=== PATIENT | female | born 1965 | race Hispanic/Latino ===

== ENCOUNTER 2017-10-02 15:18 | Observation (INO) | payer OTHER ==
[~2017-10-02] VITALS: Ht 157.5 cm; Wt 64.9 kg
--- NOTE | 2017-10-02 16:30 | ED GI/GU/ABDOMINAL COMPLAINT ---
History of Present Illness General Chief Complaint: Abdominal Pain/Flank Pain Stated Complaint: RT SIDED ABD PAIN Source: patient Exam Limitations: no limitations Vital Signs & Intake/Output Vital Signs & Intake/Output Vital Signs Date Time Temp Pulse Resp B/P B/P Pulse O2 O2 Flow FiO2 Mean Ox Delivery Rate 10/02 1751 96.1 62 20 119/73 95 Room Air 10/02 1525 96.1 69 16 145/91 96 Room Air Allergies Coded Allergies: Penicillins (facial edema 10/02/17) Reconcile Medications Levothyroxine Sodium (Synthroid) 50 MCG TABLET 50 MCG PO DAILY THYROID HEALTH (Reported) Metformin HCl (Glucophage XR) 500 MG TAB.ER.24H 1,000 MG PO BID DIABETES ( Reported) Oxycodone HCl/Acetaminophen (Percocet 5-325 MG Tablet) 5 MG-325 MG TABLET 1-2 TAB PO Q4 HRS NEEDED PRN ABDOMINAL PAIN Triage Note: PT COMPLAINS OF RLQ PAIN THAT STARTED SUNDAY WITH N/V LBM TODAY AND NORMAL , STATES THAT PAIN IS LESS TODAY THAN SUNDAY. PT WENT TO [facility] WHO DID US AND SENT PT TO ER FOR EVAL Triage Nurses Notes Reviewed? yes ? N Is pt currently ? No Onset: Abrupt Duration: day(s):, better, constant, continues in ED Quality/Severity: moderate, severe, throbbing Location: right lower quadrant Radiation: back (RIGHT) Activities at Onset: sleep HPI: Patient presents for evaluation of right lower quadrant abdominal pain that a worker from sleep on . She states that [facility] and was instructed to go to the emergency department for evaluation for possible appendicitis after a normal transvaginal ultrasound. She denies any associated fever or cold symptoms or dysuria. She states that she began feeling nauseous yesterday. Past surgical history is pertinent for liposuction and a possible cholecystitis. Past History Travel History Traveled to [place] past 21 day No Medical History Any Pertinent Medical History? see below for history Neurological: NONE EENT: NONE Cardiovascular: NONE Respiratory: NONE Gastrointestinal: NONE Hepatic: NONE Renal: NONE Musculoskeletal: NONE Psychiatric: NONE Endocrine: diabetes Blood Disorders: NONE Cancer(s): NONE RN ORTHOPEDIC/Reproductive: NONE Surgical History Surgical History: SEE hpi Psychosocial History What is your primary language Icelandic Tobacco Use: Never used ETOH Use: denies use Illicit Drug Use: denies illicit drug use Family History Hx Contributory? No Review of Systems Review of Systems Constitutional: Reports: no symptoms. EENTM: Reports: no symptoms. Respiratory: Reports: no symptoms. Cardiovascular: Reports: no symptoms. GI: Reports: see HPI. Genitourinary: Reports: no symptoms. Musculoskeletal: Reports: no symptoms. Skin: Reports: no symptoms. Neurological/Psychological: Reports: no symptoms. Hematologic/Endocrine: Reports: no symptoms. Immunologic/Allergic: Reports: no symptoms. All Other Systems: Reviewed and Negative Physical Exam Physical Exam Gastrointestinal: SEE BELOW Comments: Gen.: Well-nourished, well-developed, no acute respiratory distress. Head: Normocephalic, atraumatic. Eyes: Normal inspection bilaterally Ears: Normal inspection bilaterally Nose: Normal inspection Throat/mouth : Moist mucosa Neck: Supple, full range of motion, no goiter Heart: Regular rate and rhythm, no murmurs rubs or gallops Lungs: Clear to auscultation bilaterally with normal air entry Chest: Nontender Back: Normal range of motion Abdomen: Right lower quadrant/McBurney's point tenderness with brief voluntary guarding but no rebound, patient is tender to percussion over the same area, no Rovsing sign. Abdomen is soft with normal bowel sounds. Extremities: Normal range of motion grossly, equal radial pulses, no cyanosis clubbing or edema Neurologic: Cranial nerves grossly intact, speech is clear Skin: warm and dry Psychiatric: Calm, cooperative, no apparent delusions or hallucinations Core Measures ACS in differential dx? No Sepsis Present: No Sepsis Focused Exam Completed? No Progress Differential Diagnosis: appendicitis, biliary colic, kidney stone Plan of Care: Orders Procedure Date/time Status Add-on Test (ER Only) 10/02 1651 Active URINE 10/02 1622 Complete URINALYSIS 10/02 1622 Complete COMPREHENSIVE METABOLIC PANEL 10/02 1622 Complete CBC WITHOUT DIFFERENTIAL 10/02 1622 Complete AMYLASE 10/02 1622 Complete Current Medications Sig/Arlet Start time Last Medication Dose Stop Time Status Admin Ciprofloxacin 400 MG ONCE ONE 10/02 1930 AC (Ciprofloxacin) 10/02 2029 Dextrose/Water 200 ML (D5W) Metronidazole 500 MG ONCE ONE 10/02 1930 AC (Flagyl) 10/02 2029 N/A 1 UNIT (No Carrier) Laboratory Tests 10/02/17 1650: Anion Gap 11, Estimated GFR > 60, BUN/Creatinine Ratio 21.3, Glucose 98, Calcium 10.4 H, Total Bilirubin 0.4, AST 27, ALT 31, Alkaline Phosphatase 57, Total Protein 7.2, Albumin 4.0, Globulin 3.2, Albumin/Globulin Ratio 1.3, Amylase 32, CBC w Diff NO MAN DIFF REQ, RBC 5.03, MCV 81.1, MCH 25.8 L, RDW 14.5, MPV 9.1, Gran % 48.2, Lymphocytes % 44.4, Monocytes % 5.1, Eosinophils % 1.9, Basophils % 0.4, Absolute Granulocytes 3.6, Absolute Lymphocytes 3.3, Absolute Monocytes 0.4 , Absolute Eosinophils 0.1, Absolute Basophils 0, PUBS MCHC 31.9 L 10/02/17 1640: Urine Color YEL, Urine Clarity CLEAR, Urine pH 6.0, Ur Specific [place] 1.015, Urine Protein NEG, Urine Ketones NEG, Urine Nitrite NEG, Urine Bilirubin NEG, Urine Urobilinogen 0.2, Ur Leukocyte Esterase NEG, Ur Microscopic EXAM NOT REQUIRED, Urine Hemoglobin NEG, Urine Glucose NEG, Urine Test NEGATIVE Diagnostic Imaging: Discussed w/RAD: CT Scan. Radiology Impression: PATIENT: FLETCHER URIBE PRESENT AGE: 51 PATIENT ACCOUNT NO: [id number] : 67 LOCATION: [facility] ORDERING PHYSICIAN: Darian Emmanuel MD SERVICE DATE: 10/02/17 EXAM TYPE : CAT - CT ABD & PELVIS W IV CONTRAST EXAMINATION: CT ABDOMEN AND PELVIS WITH CONTRAST CLINICAL INFORMATION: Right lower quadrant abdominal pain and tenderness. COMPARISON: None TECHNIQUE: Multidetector volumetric imaging was performed of the abdomen and pelvis following IV administration of 95 mL of Optiray 320 intravenous contrast. Sagittal and coronal reformatted images were obtained on the technologist's workstation. DLP: 277.52 mGy-cm FINDINGS: LUNG BASES: The visualized lung bases are unremarkable. LIVER, GALLBLADDER, AND BILIARY TREE: The liver is normal in size, shape, and attenuation. No focal hepatic lesion or biliary ductal dilatation is present. Status post cholecystectomy with chronic dilatation of the CBD. No calcified stone in the bile ducts. PANCREAS: Unremarkable. SPLEEN: Unremarkable. Small splenule at the anterior splenic margin. ADRENAL GLANDS: Unremarkable. KIDNEYS AND URETERS: The kidneys are normal in size, shape, and attenuation. No hydronephrosis, hydroureter, or calculi seen. No perinephric stranding. BLADDER: Unremarkable. GASTROINTESTINAL TRACT: The appendix is abnormal. It is dilated and edematous consistent with an appendicitis. Mild edema in the mesenteric fat in right lower quadrant. No free fluid or abscess. The large and small bowel loops are normal. Moderate amount of stool throughout colon. ABDOMINAL WALL: No significant hernia is appreciated. LYMPH NODES: Normal. VASCULAR: Unremarkable. PELVIC VISCERA: Uterus is anteverted. No adnexal abnormality. OSSEOUS STRUCTURES: Unremarkable. IMPRESSION: Appendicitis. DICTATED BY: Richard Spring MD DATE/TIME DICTATED:1823 COURT OF APPEALS JUDGE:CLARIBEL DATE/TIME TRANSCRIBED:10/02/171823 CONFIDENTIAL, DO NOT COPY WITHOUT APPROPRIATE AUTHORIZATION. <Electronically signed in Other Vendor System> SIGNED BY: Richard Spring MD 10/02/17 1831 Initial ED EKG: none Comments: 10/02/2017 7:41:29 PM I have updated fletcher on her test results, I have ordered antibiotics and I am paging the surgical service. 10/02/2017 7:46:19 PM I discussed the patient's case with Dr. Melgar. Surgical PA paged. Departure Departure Disposition: STILL A PATIENT Condition: Stable Clinical Impression Primary Impression: Appendicitis, acute Qualifiers: Acute appendicitis type: with localized peritonitis Qualified Code: K35.3 - Acute appendicitis with localized peritonitis Referrals: Patient Has No Primary Care Dr (PCP/Family) Departure Forms: Customer Survey General Discharge Information Prescriptions: Current Visit Scripts Oxycodone HCl/Acetaminophen (Percocet 5-325 MG Tablet) 1-2 TAB PO Q4 HRS NEEDED PRN ABDOMINAL PAIN #20 TAB OR/GI Note Spoke With: Ramón AVILA,Abrahan Marquis ED Treatment Decision: FLETCHER URIBE requires urgent operative management of acute appendicitis that cannot be performed in the Emergency Room setting. Transport To: [facility] Critical Care Note Critical Care Note Critical Care Time: 30-74 min
[2017-10-02 17:14] LABS: ABSOLUTE BASOPHIL COUNT 0 /CUMM (0.0-0.2); ABSOLUTE EOSINOPHIL COUNT 0.1 /CUMM (0.0-0.7); ABSOLUTE GRANULOCYTE CT 3.6 /CUMM (1.4-6.5); ABSOLUTE LYMPH COUNT 3.3 /CUMM (1.2-3.4); ABSOLUTE MONOCYTE COUNT 0.4 /CUMM (0.10-0.60); BASOPHIL % 0.4 % (0.0-2.0); EOSINOPHIL % 1.9 % (0-5); GRANULOCYTE % 48.2 % (42.2-75.2); HEMATOCRIT 40.8 % (37-47); MEAN CORPUSCULAR HGB 25.8 PG (27.0-31.0); MEAN CORPUSCULAR HGB CONC 31.9 G/DL (33.0-37.0); MEAN CORPUSCULAR VOLUME 81.1 FL (81.0-99.0); MEAN PLATELET VOLUME 9.1 FL (7.4-10.4); PLATELET COUNT 281 /CUMM (130-400); RBC DISTRIBUTION WIDTH 14.5 % (11.5-14.5); RED BLOOD CELL CT 5.03 /CUMM (4.20-5.40); WHITE BLOOD CELL COUNT 7.5 /CUMM (4.8-10.8)
--- NOTE | 2017-10-02 18:31 | CT SCAN REPORT ---
EXAMINATION: CT ABDOMEN AND PELVIS WITH CONTRAST CLINICAL INFORMATION: Right lower quadrant abdominal pain and tenderness. COMPARISON: None TECHNIQUE: Multidetector volumetric imaging was performed of the abdomen and pelvis following IV administration of 95 mL of Optiray 320 intravenous contrast. Sagittal and coronal reformatted images were obtained on the technologist's workstation. DLP: 277.52 mGy-cm FINDINGS: LUNG BASES: The visualized lung bases are unremarkable. LIVER, GALLBLADDER, AND BILIARY TREE: The liver is normal in size, shape, and attenuation. No focal hepatic lesion or biliary ductal dilatation is present. Status post cholecystectomy with chronic dilatation of the CBD. No calcified stone in the bile ducts. PANCREAS: Unremarkable. SPLEEN: Unremarkable. Small splenule at the anterior splenic margin. ADRENAL GLANDS: Unremarkable. KIDNEYS AND URETERS: The kidneys are normal in size, shape, and attenuation. No hydronephrosis, hydroureter, or calculi seen. No perinephric stranding. BLADDER: Unremarkable. GASTROINTESTINAL TRACT: The appendix is abnormal. It is dilated and edematous consistent with an appendicitis. Mild edema in the mesenteric fat in right lower quadrant. No free fluid or abscess. The large and small bowel loops are normal. Moderate amount of stool throughout colon. ABDOMINAL WALL: No significant hernia is appreciated. LYMPH NODES: Normal. VASCULAR: Unremarkable. PELVIC VISCERA: Uterus is anteverted. No adnexal abnormality. OSSEOUS STRUCTURES: Unremarkable. IMPRESSION: Appendicitis.
[2017-10-02] MEDS ORDERED: GLUCOPHAGE XR500 M1 PO (18:59)
[2017-10-02] MEDS ORDERED: SYNTHROID50 MCG PO (19:00)
--- NOTE | 2017-10-02 20:34 | History & Physical Pre-Op ---
Chan Fierro 10/02/172027: General Information and HPI MD Statement: I have seen and personally examined JOSÉ MIGUEL URIBE and documented this H&P. The patient is a 51 year old F who presented with a patient stated chief complaint of [abdominal pain]. Source of Information: patient Exam Limitations: no limitations History of Present Illness: 51-year-old female with 4 days of right lower quadrant abdominal pain, anorexia, nausea. No history of same. Pain is severe, nonradiating, progressive. 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 While in the emergency department she had a CT scan of her abdomen and pelvis which shows acute appendicitis. Surgery was consulted for further management. She denies any vomiting. She last ate a little bit of an egg sandwich earlier today , she has no appetite. She was able to eat and drink sparingly throughout the last few days Allergies/Medications Allergies: Coded Allergies: Penicillins (facial edema 10/02/17) Home Med list Levothyroxine Sodium (Synthroid) 50 MCG TABLET 50 MCG PO DAILY THYROID HEALTH (Reported) Metformin HCl (Glucophage XR) 500 MG TAB.ER.24H 1,000 MG PO BID DIABETES ( Reported) Past History Medical History Neurological: NONE EENT: NONE Cardiovascular: NONE Respiratory: NONE Gastrointestinal: NONE Hepatic: NONE Renal: nephrolithiasis Musculoskeletal: NONE Psychiatric: NONE Endocrine: diabetes Blood Disorders: NONE Cancer(s): NONE 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 Review of Systems Review of Systems Constitutional: Reports: no symptoms, chills, malaise. Denies: fever. EENTM: Reports: no symptoms. Cardiovascular: Reports: no symptoms. Respiratory: Reports: no symptoms. GI: Reports: see HPI. Genitourinary: Reports: no symptoms. Musculoskeletal: Reports: no symptoms. Skin: Reports: no symptoms. Neurological/Psychological: Reports: no symptoms. Hematologic/Endocrine: Reports: no symptoms. Immunologic/Allergic: Reports: no symptoms. Exam & Diagnostic Data Last 24 Hrs of Vital Signs/I&O Vital Signs Date Time Temp Pulse Resp B/P B/P Pulse O2 O2 Flow FiO2 Mean Ox Delivery Rate 10/02 2023 96.3 62 16 125/81 94 Room Air 10/02 1751 96.1 62 20 119/73 95 Room Air 10/02 1525 96.1 69 16 145/91 96 Room Air Intake & Output 10/02 1600 10/02 0800 10/02 0000 Intake Total Output Total Balance Patient 143 lb Weight Physical Exam: Well-developed well-nourished, mildly pale appearing, appears to be somewhat uncomfortable HEENT: Normal EENT exam, extraocular motion intact, dry mucous membranes Nose is atraumatic. Pharynx normal. No swelling or edema. Neck: Supple, no lymphadenopathy, normal range of motion without pain or tenderness Back: Nontender, no CVA tenderness. Full range of motion Cardiovascular: Regular rate and rhythms no murmurs, normal JVP Respiratory: Chest nontender. No respiratory distress. Breath sounds clear to auscultation bilaterally Abdomen: Soft, severe tenderness in the right lower quadrant, significant guarding noted, abdomen is soft nondistended, no appreciable organomegaly. Normal bowel sounds. No ascites Extremity: No edema, no calf tenderness to palpation, normal and equal pulses. Neuro: Alert oriented x3, motor sensory normal, cranial nerves II through XII grossly intact. Skin: No appreciable rash on exposed skin, skin is warm and dry. Psych: Mood and affect is normal, memory and judgment is normal. Last 24 Hrs of Labs/Randy: Laboratory Tests 10/02/17 1650: Anion Gap 11, Estimated GFR > 60, BUN/Creatinine Ratio 21.3, Glucose 98, Calcium 10.4 H, Total Bilirubin 0.4, AST 27, ALT 31, Alkaline Phosphatase 57, Total Protein 7.2, Albumin 4.0, Globulin 3.2, Albumin/Globulin Ratio 1.3, Amylase 32, CBC w Diff NO MAN DIFF REQ, RBC 5.03, MCV 81.1, MCH 25.8 L, RDW 14.5, MPV 9.1, Gran % 48.2, Lymphocytes % 44.4, Monocytes % 5.1, Eosinophils % 1.9, Basophils % 0.4, Absolute Granulocytes 3.6, Absolute Lymphocytes 3.3, Absolute Monocytes 0.4 , Absolute Eosinophils 0.1, Absolute Basophils 0, PUBS MCHC 31.9 L 10/02/17 1640: Urine Color YEL, Urine Clarity CLEAR, Urine pH 6.0, Ur Specific [place] 1.015, Urine Protein NEG, Urine Ketones NEG, Urine Nitrite NEG, Urine Bilirubin NEG, Urine Urobilinogen 0.2, Ur Leukocyte Esterase NEG, Ur Microscopic EXAM NOT REQUIRED, Urine Hemoglobin NEG, Urine Glucose NEG, Urine Test NEGATIVE Diagnostic Data Other Results PATIENT: JOSÉ MIGUEL URIBE PRESENT AGE: 51 PATIENT ACCOUNT NO: [id number] : 67 LOCATION: [facility] ORDERING PHYSICIAN: Darian Emmanuel MD SERVICE DATE: 10/02/17 EXAM TYPE: CAT - CT ABD & PELVIS W IV CONTRAST EXAMINATION: CT ABDOMEN AND PELVIS WITH CONTRAST CLINICAL INFORMATION: Right lower quadrant abdominal pain and tenderness. COMPARISON: None TECHNIQUE: Multidetector volumetric imaging was performed of the abdomen and pelvis following IV administration of 95 mL of Optiray 320 intravenous contrast. Sagittal and coronal reformatted images were obtained on the technologist's workstation. DLP: 277.52 mGy-cm FINDINGS: LUNG BASES: The visualized lung bases are unremarkable. LIVER, GALLBLADDER, AND BILIARY TREE: The liver is normal in size, shape, and attenuation. No focal hepatic lesion or biliary ductal dilatation is present. Status post cholecystectomy with chronic dilatation of the CBD. No calcified stone in the bile ducts. PANCREAS: Unremarkable. SPLEEN: Unremarkable. Small splenule at the anterior splenic margin. ADRENAL GLANDS: Unremarkable. KIDNEYS AND URETERS: The kidneys are normal in size, shape, and attenuation. No hydronephrosis, hydroureter, or calculi seen. No perinephric stranding. BLADDER: Unremarkable. GASTROINTESTINAL TRACT: The appendix is abnormal. It is dilated and edematous consistent with an appendicitis. Mild edema in the mesenteric fat in right lower quadrant. No free fluid or abscess. The large and small bowel loops are normal. Moderate amount of stool throughout colon. ABDOMINAL WALL: No significant hernia is appreciated. LYMPH NODES: Normal. VASCULAR: Unremarkable. PELVIC VISCERA: Uterus is anteverted. No adnexal abnormality. OSSEOUS STRUCTURES: Unremarkable. IMPRESSION: Appendicitis. DICTATED BY: Richard Spring MD DATE/TIME DICTATED:10/02/171823 FORENSIC CHEMIST:CLARIBEL DATE/TIME TRANSCRIBED:10/02/171823 CONFIDENTIAL, DO NOT COPY WITHOUT APPROPRIATE AUTHORIZATION. <Electronically signed in Other Vendor System> SIGNED BY: Richard Spring MD 10/02/17 9795 Assessment/Plan Assessment/Plan: 51-year-old female with acute appendicitis Discussed with Dr. Melgar, will take patient to the operating theater this evening for laparoscopic appendectomy. She is given antibiotics, Cipro and Flagyl here in the emergency department and also given IV fluids. Discussed with patient and family who understand and agree with plan. As Ranked By This Provider Problem List: 1. Appendicitis, acute Ramón AVILA,Abrahan Marquis 10/02/17 7115: Assessment/Plan Copies To: Mickie Jaquez Attending MD Review Statement Attending Statement Attending MD Statement: examined this patient, discuss w/resident/PA/IMPREGNATOR ELECTROLYTIC CAPACITORS, reviewed images Attending Assessment/Plan: 51-year-old woman with diabetes mellitus presents with 4 days of progressive abdominal pain. She now has focal right lower quadrant abdominal pain and tenderness. Although she does not have a leukocytosis, CT scan confirms the clinical suspicion of acute appendicitis. There is no clinical or radiographic evidence of perforation. Patient will be given broad-spectrum IV antibiotics and taken probably to the operating room for laparoscopic appendectomy. She is informed the risk of the operation including bleeding, infection and agrees to proceed.
--- NOTE | 2017-10-02 22:01 | Operative Report ---
Operative/Inv Procedure Report Surgery Date: 10/02/17 Name of Procedure: Laparoscopic appendectomy Pre-Operative Diagnosis: Acute appendicitis Post-Operative Diagnosis: Same Estimated Blood Loss: scant Surgeon/Digital Circuit Designer: Ramón AVILA,Abrahan Marquis/Chan ENRIQUEZ Anesthesia: general endotracheal tube Specimens: Appendix Operative Indication: See preoperative H&P Operative/Procedure Note Note: After consent patient is brought to the operating room and laid supine. General anesthesia was obtained his abdomen was prepped and draped. Skin above the umbilicus was after local anesthesia a curvilinear incision made sharply. We dissected through subcutaneous tissues tissues bluntly and identified the fascia. It was grasped with Boissevain's and a fasciotomy created sharply. The peritoneum was entered sharply and a blunt Campo port was placed. Pneumoperitoneum was achieved. 2, 5 mm ports were placed in the suprapubic region and left lower quadrant, after local anesthesia was instilled and under direct vision the camera. Patient placed in Trendelenburg and rotated towards the left. The abdomen was explored. There was omental adhesions in the infraumbilical midline which were left in situ. We placed ports such that the area could be avoided. The appendix was identified in the right lower quadrant. The adhesions to omentum were taken off bluntly. It was mobilized bluntly throughout its length. The base was supple and grasped the Luan. A window in the mesentery is then developed with a [place] dissector. The mesentery and base were then sequentially divided with Endo ANA LUISA Tidwell load. Appendix placed in Endo Catch bag and cinched up. The right lower quadrant and pelvis were then irrigated with normal saline. Hemostasis was adequate. Ports then removed and appendix delivered and passed off the field. The fascia was closed 0 Vicryl suture. Skin incisions closed with 4-0 Vicryl. Steri-Strips and sterile dressing applied. Sponge and needle counts are correct Findings: Suppurative appendicitis, no perforation CC: Mickie Jaquez
[2017-10-02] MEDS ORDERED: PERCOCET 5-3251 EACH PO (23:04)
--- NOTE | 2017-10-02 23:04 | Admission Core Measures ---
Acute Coronary Syndrome (CM) ACS Core Measures Acute Coronary Syndrome Diagnosis No Congestive Heart Failure (NEW) CHF Core Measures Congestive Heart Failure Diagnosis No Cerebrovascular Accident (NEW) CVA Core Measures CVA/TIA Diagnosis No Venous Thromboembolism VTE Core Suraj (View Protocol) VTE Risk Factors Age>40 No Mechanical VTE Prophylaxis d/t N/A MechProphylax Ordered No VTE Pharm Prophylaxis d/t LowRisk-No Interven Req'd Problem List As ranked by this Provider includes Assessment & Plan 1. Appendicitis, acute HOME MEDS Home Med List Levothyroxine Sodium (Synthroid) 50 MCG TABLET 50 MCG PO DAILY THYROID HEALTH (Reported) Metformin HCl (Glucophage XR) 500 MG TAB.ER.24H 1,000 MG PO BID DIABETES ( Reported)
--- NOTE | 2017-10-02 23:07 | Patient Discharge Instructions ---
Discharge Instructions General Discharge Information You were seen/treated for: Acute appendicitis You had these procedures: Laparoscopic appendectomy Watch for these problems: Worsening abdominal pain, nausea, vomiting, fever, redness or discharge about the wound Do not soak the wound: Yes No bath, but you may shower: Yes Other wound care: BanD AID to incision sites, change daily Special Instructions: Take pain medication as needed. Avoid heavy lifting or excessive physical activity until follow-up appointment Diet Continue normal diet: Yes Recommended Diet: Diabetic Activity Full Activity/No Limits: No Activity Self Limited: Yes Pounds, do NOT lift more than: 10 (until follow-up appointment) Acute Coronary Syndrome Inclusion Criteria At DC or during hospital stay patient has or had the following: ACS DIAGNOSIS No Discharge Core Measures Meds if any: Prescribed or Continued at Discharge Meds if any: NOT Prescribed or Continued at Discharge Congestive Heart Failure Inclusion Criteria At DC or during hospital stay patient has or had the following: CHF DIAGNOSIS No Discharge Core Measures Meds if any: Prescribed or Continued at Discharge Meds if any: NOT Prescribed or Continued at Discharge Cerebrovascular accident Inclusion Criteria At DC or during hospital stay patient has or had the following: CVA/TIA Diagnosis No Discharge Core Measures Meds if any: Prescribed or Continued at Discharge Meds if any: NOT Prescribed or Continued at Discharge Venous thromboembolism Inclusion Criteria VTE Diagnosis No VTE Type NONE VTE Confirmed by (Test) NONE Discharge Core Measures - Per Current guidelines, there needs to be overlap - treatment for the first 5 days of Warfarin therapy. - If discharged on Warfarin prior to 5 days of - overlap therapy, the patient will need to be - assessed for post discharge needs including - *Post discharge parental anticoagulation - *Warfarin and/or parental anticoagulation education - *Follow up date to check INR post discharge At least 5 days overlap therapy as Inpatient No Meds if any: Prescribed or Continued at Discharge Note: Overlap Therapy is Warfarin and Anticoagulant Meds if any: NOT Prescribed or Continued at Discharge
--- NOTE | 2017-10-02 23:09 | PN- General Surgery ---
Subjective Subjective: Postop check: Patient comfortable, no acute distress Objective Vital Signs and I&Os Vital Signs Date Time Temp Pulse Resp B/P B/P Pulse O2 O2 Flow FiO2 Mean Ox Delivery Rate 10/02 2023 96.3 62 16 125/81 94 Room Air 10/02 1751 96.1 62 20 119/73 95 Room Air 10/02 1525 96.1 69 16 145/91 96 Room Air Intake & Output 10/02 1600 10/02 0800 10/02 0000 10/01 1600 10/01 0800 10/01 0000 Intake Total Output Total Balance Patient 143 lb Weight Physical Exam: Well-developed well-nourished no apparent distress. HEENT: Atraumatic, extraocular motion intact Neck: Supple, no lymphadenopathy Respiratory: No respiratory distress Abdomen: Minimal tenderness right lower quadrant, dressings clean dry and intact , nondistended Extremities: No edema, no calf pain Neuro: Alert and oriented x3 Psych: Mood affect normal, normal memory normal judgment. Skin: Warm and dry, no rash on exposed skin Assessment/Plan Assessment/Plan Postop day #0 status post laparoscopic appendectomy for acute appendicitis 23 hour observation for continued monitoring, pain medication, IV fluids Likely discharge home in a.m. Regular diet Out of bed ad fracisco. Core Measures Venous Thromboembolism VTE Risk Factors Age>40 No Mechanical VTE Prophylaxis d/t N/A MechProphylax Ordered No VTE Pharm Prophylaxis d/t LowRisk-No Interven Req'd
[2017-10-02 23:50] VITALS: BP 110/70
[2017-10-03 04:33] VITALS: BP 108/70
[2017-10-03 07:10] VITALS: BP 140/96
--- NOTE | 2017-10-03 07:14 | PN- General Surgery ---
See Addendum Subjective Subjective: No events overnight. Patient doing well this am. Denies any abdominal pain this morning. Took Percocet x 1 at midnight with good effect, has not required any pain medication since. Denies any nausea, vomiting, fevers, chills, chest pain or SOB. Tolerating water overnight. Voiding freely. Objective Vital Signs and I&Os Vital Signs Date Time Temp Pulse Resp B/P B/P Pulse O2 O2 Flow FiO2 Mean Ox Delivery Rate 10/03 0433 97.9 59 16 108/70 95 Nasal 2.0L Cannula 10/03 0000 93 Nasal 2.0L Cannula 10/02 2350 97.5 62 16 110/70 93 Nasal 2.0L Cannula 10/02 2023 96.3 62 16 125/81 94 Room Air 10/02 1751 96.1 62 20 119/73 95 Room Air 10/02 1525 96.1 69 16 145/91 96 Room Air Intake & Output 10/03 0800 10/03 0000 10/02 1600 10/02 0800 10/02 0000 10/01 1600 Intake Total 1350 Output Total Balance 1350 Intake, IV 1250 Intake, Oral 100 Patient 143 lb 143 lb Weight Physical Exam: Afebrile, VSS. Cardiac: RRR Pulmonary: CTAB, no wheezes, rales, or rhonchi Abdominal: Dressings c/d/i. + BS, soft, non distended, non tender to palpation. No rebound or guarding. No LE edema. Assessment/Plan Assessment/Plan 51 y/o female POD # 1 s/p laparoscopic appendectomy for acute appendicitis, doing well post operatively. - Regular diet - d/c IVF - PO pain control - Antiemetics prn - Taken off O2 while at bedside, 94% on RA - keep on RA this am - IS use encouraged - Encourage OOB/ambulation - DVT ppx - ALPs - Plan for d/c this am if able to maintain O2 sat on RA - will d/w Dr. Melgar Core Measures Venous Thromboembolism VTE Risk Factors Age>40 No Mechanical VTE Prophylaxis d/t N/A MechProphylax Ordered No VTE Pharm Prophylaxis d/t LowRisk-No Interven Req'd
[2017-10-03] MEDS ORDERED: PERCOCET 5-3251 EACH PO (07:29)
[2017-10-03 10:29] VITALS: BP 100/58
== END 2017-10-03 11:57 ==
LOC: ERH 15:18 → ER-OR 15:35 → ERH 15:35 → PACUH 21:38 → 2NB 21:38 → CRI 22:46 → 2NB 23:54 → ENPENDDIS 10-03 08:49 → 2NB 10-03 11:57
PROVIDERS: Physician Assistant Medical
DX: K35.80 Unspecified acute appendicitis (principal); R10.9 Unspecified abdominal pain; E11.9 Type 2 diabetes mellitus without complications; E03.9 Hypothyroidism, unspecified; Z87.442 Personal history of urinary calculi; Z79.84 Long term (current) use of oral hypoglycemic drugs
CPT/HCPCS: 6040; 74177; 81003; 81025; 96361; 96365; 96375; 96376; C9399; G0008; G0378; J0131; J0744; J1170; J1815; J2250; J2405; J2550; J3010; J7040; J7042; J7060